=== PATIENT | female | born 1950 | race Caucasian/White ===

== ENCOUNTER 2017-08-06 02:05 | Emergency (ER) | payer OTHER ==
[~2017-08-06] VITALS: Ht 162.6 cm; Wt 55.0 kg
[2017-08-06 02:16] VITALS: BP 199/102; PULSE 79; RESP 16; TEMP 97.8; O2SAT 97
--- NOTE | 2017-08-06 02:30 | PD ---
HPI Chief Complaint: Complaint Time Seen by Provider: 02:16 Travel History International Travel<30 days: No Contact w/Intl Traveler<30days: No Traveled to known affect area: No History of Present Illness HPI The patient is a 67-year-old male that complains of frequent urination for the last 24 hours. She states she had difficulty sleeping so she called an ambulance to take her here. She denies any fever. She blames the frequent urination on the hydralazine which he takes 50 mg 3 times daily. This dose was just increased from 25 mg twice daily. She denies any nausea, vomiting or diarrhea. The patient also has had non-vertiginous dizziness. PFSH Past Medical History Diminished Hearing: No Hypertension: Yes Tetanus Vaccination: Never Vaccinated Influenza Vaccination: No ?: Not Tubal Ligation: Yes Past Surgical History Appendectomy: Yes Section: Yes Tonsillectomy: Yes Social History Alcohol Use: Yes (SEVERAL BEERS AT NIGHT) Tobacco Use: No (Quiy 07/04/2017) Substance Use: No Allergies-Medications (Allergen,Severity, Reaction): Coded Allergies: ampicillin (Verified Allergy, Unknown, 08/06/17) codeine (Verified Allergy, Unknown, 08/06/17) Reported Meds & Prescriptions Reported Meds & Active Scripts Active Reported [saima tridentata] 500 Mg PO DAILY D3-1000 (Cholecalciferol) 1,000 Unit Cap 1 Cap PO DAILY Miralax Powder (Polyethylene Glycol 3350 Powder) 17 Gm Powd 17 Gm PO DAILY Mix and dissolve one measuring cap-ful (17 grams) in water or juice. Probiotic (Saccharomyces Boulardii) 250 Mg Cap 250 Mg PO BID Fish Oil ([place]-3 Fatty Acids) 340 Mg-1,000 Mg Cap 1 Tab PO DAILY Potassium Gluconate 595 Mg (99 Mg) Tab 1 Mg PO DAILY Aspirin 81 Mg Chew 81 Mg CHEW DAILY Bhupendra (Amlodipine-Olmesartan) 5-40 Mg Tab 1 Tab PO DAILY Hydralazine (Hydralazine HCl) 100 Mg Tab 50 Mg PO TID Take with meals Metoprolol Tartrate 100 Mg Tab 100 Mg PO BID Review of Systems Except as stated in HPI: all other systems reviewed are Neg Physical Exam Narrative GENERAL: The patient is alert, oriented 3 in minimal apparent distress with her dizziness/bladder symptoms. SKIN: Focused skin assessment warm/dry. HEAD: Atraumatic. Normocephalic. EYES: Pupils equal and round. No scleral icterus. No injection or drainage. ENT: No nasal bleeding or discharge. Mucous membranes pink and moist. NECK: Trachea midline. No JVD. CARDIOVASCULAR: Regular rate and rhythm. No murmur appreciated. RESPIRATORY: No accessory muscle use. Clear to auscultation. Breath sounds equal bilaterally. GASTROINTESTINAL: Abdomen soft, non-tender, nondistended. Hepatic and splenic margins not palpable. MUSCULOSKELETAL: No obvious deformities. No clubbing. No cyanosis. No edema. NEUROLOGICAL: Awake and alert. No obvious cranial nerve deficits. Motor grossly within normal limits. Normal speech. PSYCHIATRIC: Appropriate mood and affect; insight and judgment normal. Data Data Last Documented VS Vital Signs Date Time Temp Pulse Resp B/P (MAP) Pulse Ox O2 Delivery O2 Flow Rate FiO2 08/06/17 02:21 78 16 08/06/17 02:16 97.8 199/102 (134) 97 Orders Orders Urinalysis - C+S If Indicated (08/06/17 02:14) Electrocardiogram (08/06/17 02:30) Complete Blood Count With Diff (08/06/17 02:30) Comprehensive Metabolic Panel (08/06/17 02:30) Labs Laboratory Tests Test 08/06/17 02:34 08/06/17 02:56 Urine Color YELLOW Urine Turbidity CLEAR Urine pH 7.5 Urine Specific [place] 1.006 Urine Protein NEG mg/dL Urine Glucose (UA) NEG mg/dL Urine Ketones NEG mg/dL Urine Occult Blood TRACE Urine Nitrite NEG Urine Bilirubin NEG Urine Leukocyte Esterase NEG Urine RBC 0-3 /hpf Urine Squamous Epithelial Cells 0-5 /hpf Microscopic Urinalysis Comment CULT NOT INDICATED White Blood Count 5.2 TH/MM3 Red Blood Count 4.76 MIL/MM3 Hemoglobin 15.0 GM/DL Hematocrit 46.4 % Mean Corpuscular Volume 97.3 FL Mean Corpuscular Hemoglobin 31.5 PG Mean Corpuscular Hemoglobin Concent 32.3 % Red Cell Distribution Width 12.9 % Platelet Count 313 TH/MM3 Mean Platelet Volume 7.2 FL Neutrophils (%) (Auto) 59.3 % Lymphocytes (%) (Auto) 27.5 % Monocytes (%) (Auto) 8.5 % Eosinophils (%) (Auto) 3.0 % Basophils (%) (Auto) 1.7 % Neutrophils # (Auto) 3.1 TH/MM3 Lymphocytes # (Auto) 1.4 TH/MM3 Monocytes # (Auto) 0.4 TH/MM3 Eosinophils # (Auto) 0.2 TH/MM3 Basophils # (Auto) 0.1 TH/MM3 CBC Comment DIFF FINAL Differential Comment Sodium Level 129 MEQ/L Potassium Level 3.7 MEQ/L Chloride Level 94 MEQ/L MDM Medical Decision Making Medical Screen Exam Complete: Yes Emergency Medical Condition: Yes Medical Record Reviewed: Yes Interpretation(s) The urine is clear with specific gravity 1.006 and shows trace occult blood but is otherwise normal and culture is not indicated. The CBC is normal except for hematocrit of 46.4. The EKG is normal with normal sinus rhythm rate of 77. Differential Diagnosis Urinary tract infection, electrolyte disorder, anemia, medication side effect Narrative Course The patient is convinced that this is a medication side effect, possibly due to hydralazine. She needs to go to Dr. Worthington's office today, she had planned to do this anyway and have them review her blood pressure medications. Diagnosis Primary Impression: Medication side effect Additional Instructions: As we discussed, go back to your old medication regimen until you see Dr. Worthington. As you have planned already, try to get into his office today. Disposition: 01 DISCHARGE HOME Condition: Stable Yan Carvalho MD Aug 06, 2017 02:30
[2017-08-06] MEDS ORDERED: AZOR5TAB4 PO (02:33)
[2017-08-06] MEDS ORDERED: ASPI-516 CHEW (02:33)
[2017-08-06] MEDS ORDERED: HYDR-3801 PO (02:33)
[2017-08-06] MEDS ORDERED: METO100T PO (02:33)
[2017-08-06] MEDS ORDERED: POTA595T PO (02:33)
[2017-08-06] MEDS ORDERED: [UNRECOGNIZED DRUG - OTHER] PO (02:43)
[2017-08-06] MEDS ORDERED: CHOL1CAP32 PO (02:43)
[2017-08-06] MEDS ORDERED: FISH1000 PO (02:43)
[2017-08-06] MEDS ORDERED: MIRA3350 PO (02:43)
[2017-08-06] MEDS ORDERED: SACC1CAP3 PO (02:43)
[2017-08-06 03:02] LABS: GLUCOSE,URINE NEG (NEG); KETONE, URINE NEG (NEG); NITRITE,URINE NEG (NEG); PH, URINE 7.5 (5.0-8.5)
[2017-08-06 03:07] LABS: AUTOMATED NEUTROPHIL # 3.1 TH/MM3 (1.8-7.7); BASOPHIL # 0.1 TH/MM3 (0-0.2); BASOPHIL % 1.7 % (0.0-2.0); EOSINOPHIL # 0.2 TH/MM3 (0-0.4); HEMATOCRIT 46.4 % (35.0-46.0); HEMO FLAGS DIFF FINAL; LYMPH % 27.5 % (9.0-44.0); LYMPHOCYTE # 1.4 TH/MM3 (1.0-4.8); MEAN CELL VOLUME 97.3 FL (80.0-100.0); MEAN CORPUSCULAR HEMOGLOBIN 31.5 PG (27.0-34.0); MEAN CORPUSCULAR HGB CONC 32.3 % (32.0-36.0); MONO % 8.5 % (0.0-8.0); NEUT % 59.3 % (16.0-70.0); PLATELET COUNT 313 TH/MM3 (150-450); RED BLOOD COUNT 4.76 MIL/MM3 (4.00-5.30); RED CELL DISTRIBUTION WIDTH 12.9 % (11.6-17.2); WHITE BLOOD COUNT 5.2 TH/MM3 (4.0-11.0)
[2017-08-06 03:08] LABS: BLOOD, URINE TRACE (NEG)
[2017-08-06 03:10] LABS: URINE COLOR YELLOW (YELLW/STRAW)
[2017-08-06 03:11] LABS: COMMENT (UR) CULT NOT INDICATED; CULTURE IF INDICATED CULT NOT INDICATED; RBC, URINE 0-3 /hpf (0-3); SQUAMOUS EPITHELIAL CELL URINE 0-5 /hpf (0-5)
[2017-08-06 03:15] LABS: CHLORIDE 94 MEQ/L (98-107); POTASSIUM 3.7 MEQ/L (3.5-5.1); SODIUM (NA) 129 MEQ/L (136-145)
[2017-08-06 03:19] LABS: ANION GAP 8 MEQ/L (5-15); BICARBONATE 27.4 MEQ/L (21.0-32.0); BLOOD UREA NITROGEN 11 MG/DL (7-18)
[2017-08-06 03:22] LABS: ALT (GPT) 27 U/L (10-53); AST (GOT) 26 U/L (15-37); GLOMERULAR FILTRATION RATE 79 ML/MIN (>89)
[2017-08-06 03:24] LABS: TOTAL BILIRUBIN ADULT 0.5 MG/DL (0.2-1.0)
[2017-08-06 03:25] LABS: ALKALINE PHOSPHATASE 95 U/L (45-117)
[2017-08-06 03:40] VITALS: BP 116/69; PULSE 66; RESP 16; O2SAT 98
[2017-08-06 03:50] VITALS: BP 141/80
--- NOTE | 2017-08-06 20:34 | EKG ---
Date Performed: 08/06/2017 Time Performed: 02:46:29 PTAGE: 67 years EKG: Sinus rhythm Compared to previous tracing, sinus rate is faster NORMAL ECG PREVIOUS TRACING : 01/02/2013 10.46 DOCTOR: Alejandro Pritchard Interpretating Date/Time 08/06/2017 20:33:04
== END 2017-08-06 03:52 | disposition home or self-care (01) ==
LOC: PHED 02:05
DX: R35.0 Frequency of micturition (principal); T46.5X5A Adverse effect of other antihypertensive drugs, initial encounter; I10 Essential (primary) hypertension; Z87.891 Personal history of nicotine dependence
CPT/HCPCS: 80053; 81001; 85025; 93005; 99284

== ENCOUNTER 2018-01-24 11:40 | Emergency (ER) | payer OTHER, MEDICAID ==
[2018-01-24] VITALS (15 sets, daily range): BP systolic 88–227; BP diastolic 52–118; PULSE 57–82; RESP 16–18; TEMP 98.2; O2SAT 95–98
[~2018-01-24] VITALS: Ht 164.5 cm; Wt 54.0 kg
[~2018-01-24 11:40] MED LIST: ASPI-516 CHEW; AZOR5TAB4 PO; CHOL1CAP32 PO; FISH1000 PO; HYDR-3801 PO; METO100T PO; MIRA3350 PO; POTA595T PO; SACC1CAP3 PO; [UNRECOGNIZED DRUG - OTHER] PO
--- NOTE | 2018-01-24 12:42 | PD ---
HPI Chief Complaint: Hypertension Time Seen by Provider: 12:40 Travel History International Travel<30 days: No Contact w/Intl Traveler<30days: No Traveled to known affect area: No History of Present Illness HPI Patient was just routinely checking her blood pressure when she noticed that it was systolic in the 200s, patient did not have any symptoms. Denies visual changes, headache, nausea, vomiting, chest pain, back pain, flank pain, abdominal pain. No alleviating or aggravating factors. The patient is already on metoprolol 100 mg p.o. twice daily and on hydralazine p.o. twice daily as well. Allergic to amlodipine, ampicillin, codeine Past medical history significant for hypertension appendectomy tubal ligation C- section tonsillectomy and corrective lenses PFSH Past Medical History Diminished Hearing: No Hypertension: Yes Tetanus Vaccination: > 5 Years Influenza Vaccination: No ?: Not Tubal Ligation: Yes Past Surgical History Appendectomy: Yes Section: Yes Tonsillectomy: Yes Social History Alcohol Use: Yes (SEVERAL [employer]ERS AT NIGHT) Tobacco Use: No (Quiy 07/04/2017) Substance Use: No Allergies-Medications (Allergen,Severity, Reaction): Coded Allergies: amlodipine (Verified Allergy, Unknown, unkown, 01/24/18) ampicillin (Verified Allergy, Unknown, 01/24/18) codeine (Verified Allergy, Unknown, 01/24/18) Reported Meds & Prescriptions Reported Meds & Active Scripts Active Reported [saima tridentata] 500 Mg PO DAILY D3-1000 (Cholecalciferol) 1,000 Unit Cap 1 Cap PO DAILY Miralax Powder (Polyethylene Glycol 3350 Powder) 17 Gm Powd 17 Gm PO DAILY Mix and dissolve one measuring cap-ful (17 grams) in water or juice. Fish Oil ([place]-3 Fatty Acids) 340 Mg-1,000 Mg Cap 1 Tab PO DAILY Potassium Gluconate 595 Mg (99 Mg) Tab 1 Mg PO DAILY Aspirin 81 Mg Chew 81 Mg CHEW DAILY Hydralazine (Hydralazine HCl) 100 Mg Tab 25 Mg PO TID Take with meals Metoprolol Tartrate 100 Mg Tab 100 Mg PO BID Review of Systems General / Constitutional: No: Fever Eyes: No: Visual changes HENT: No: Headaches Cardiovascular: No: Chest Pain or Discomfort Respiratory: No: Shortness of Breath Gastrointestinal: No: Abdominal Pain Genitourinary: No: Dysuria Musculoskeletal: No: Pain Skin: No Rash Neurologic: No: Weakness Psychiatric: No: Depression Endocrine: No: Polydipsia Hematologic/Lymphatic: No: Easy Bruising Physical Exam Narrative GENERAL: SKIN: Warm and dry. HEAD: Atraumatic. Normocephalic. EYES: Pupils equal and round. No scleral icterus. No injection or drainage. ENT: No nasal bleeding or discharge. Mucous membranes pink and moist. NECK: Trachea midline. No JVD. CARDIOVASCULAR: Regular rate and rhythm. RESPIRATORY: No accessory muscle use. Clear to auscultation. Breath sounds equal bilaterally. GASTROINTESTINAL: Abdomen soft, non-tender, nondistended. MUSCULOSKELETAL: Extremities without clubbing, cyanosis, or edema. No obvious deformities. NEUROLOGICAL: Awake and alert. No obvious cranial nerve deficits. Motor grossly within normal limits. Five out of 5 muscle strength in the arms and legs. Normal speech. PSYCHIATRIC: Appropriate mood and affect; insight and judgment normal. Data Data Last Documented VS Orders Orders Basic Metabolic Panel (Bmp) (01/24/18 12:42) Complete Blood Count With Diff (01/24/18 12:42) Prothrombin Time / Inr (Pt) (01/24/18 12:42) Act Partial Throm Time (Ptt) (01/24/18 12:42) Chest, Single Ap (01/24/18 12:42) Ecg Monitoring (01/24/18 12:42) Iv Access Insert/Monitor (01/24/18 12:42) Oximetry (01/24/18 12:42) Hydralazine Inj (Apresoline Inj) (01/24/18 12:45) Clonidine (Catapres) (01/24/18 13:15) Hydralazine Inj (Apresoline Inj) (01/24/18 14:00) Sodium Chlor 0.9% 250 Ml Inj (Ns 250 Ml (01/24/18 14:45) Ct Brain W/O Iv Contrast(Rout) (01/24/18 14:51) Lorazepam Inj (Ativan Inj) (01/24/18 15:00) Ckmb (Isoenzyme) Profile (01/24/18 14:52) Troponin I (01/24/18 14:52) Ed Discharge Order (01/24/18 17:38) Labs Laboratory Tests Test 01/24/18 13:00 White Blood Count 5.9 TH/MM3 Red Blood Count 4.34 MIL/MM3 Hemoglobin 13.8 GM/DL Hematocrit 41.3 % Mean Corpuscular Volume 95.0 FL Mean Corpuscular Hemoglobin 31.7 PG Mean Corpuscular Hemoglobin Concent 33.4 % Red Cell Distribution Width 12.5 % Platelet Count 284 TH/MM3 Mean Platelet Volume 7.3 FL Neutrophils (%) (Auto) 57.7 % Lymphocytes (%) (Auto) 23.7 % Monocytes (%) (Auto) 14.4 % Eosinophils (%) (Auto) 1.9 % Basophils (%) (Auto) 2.3 % Neutrophils # (Auto) 3.5 TH/MM3 Lymphocytes # (Auto) 1.4 TH/MM3 Monocytes # (Auto) 0.8 TH/MM3 Eosinophils # (Auto) 0.1 TH/MM3 Basophils # (Auto) 0.1 TH/MM3 CBC Comment DIFF FINAL Differential Comment Prothrombin Time 10.4 SEC Prothromb Time International Ratio 1.0 RATIO Activated Partial Thromboplast Time 29.9 SEC Blood Urea Nitrogen 9 MG/DL Creatinine 0.75 MG/DL Random Glucose 101 MG/DL Calcium Level 9.0 MG/DL Sodium Level 132 MEQ/L Potassium Level 3.8 MEQ/L Chloride Level 95 MEQ/L Carbon Dioxide Level 28.5 MEQ/L Anion Gap 9 MEQ/L Estimat Glomerular Filtration Rate 77 ML/MIN Total Creatine Kinase 58 U/L Troponin I LESS THAN 0.02 NG/ML MDM Medical Decision Making Medical Screen Exam Complete: Yes Emergency Medical Condition: Yes Medical Record Reviewed: Yes Differential Diagnosis Pneumothorax versus pneumonia versus pleural effusion versus STEMI Narrative Course CBC shows no leukocytosis, no anemia, normal platelet count, no left shift Coagulation profile is within normal limits Electrolytes are all within normal limits particularly kidney functions. Head CT is without any intracranial hemorrhage Chest x-ray read as no acute abnormality Diagnosis Primary Impression: Accelerated hypertension Patient Instructions: General Instructions, Hypertension (DC) Additional Instructions: Make sure to keep your appointment with ERICKA Pizarro for further evaluation and care of your blood pressure which is very difficult to control Disposition: 01 DISCHARGE HOME Condition: Stable Laurent Reyes MD January 24, 2018 12:42
[2018-01-24] MEDS ORDERED: hydrALAZINE HCL 20 MG/ML VIAL IV PUSH ONE ×2 (12:45→14:00)
[2018-01-24 13:06] LABS: AUTOMATED NEUTROPHIL # 3.5 TH/MM3 (1.8-7.7); BASOPHIL # 0.1 TH/MM3 (0-0.2); BASOPHIL % 2.3 % (0.0-2.0); EOSINOPHIL # 0.1 TH/MM3 (0-0.4); EOSINOPHIL % 1.9 % (0.0-4.0); HEMATOCRIT 41.3 % (35.0-46.0); HEMOGLOBIN 13.8 GM/DL (11.6-15.3); LYMPH % 23.7 % (9.0-44.0); LYMPHOCYTE # 1.4 TH/MM3 (1.0-4.8); MEAN CORPUSCULAR HEMOGLOBIN 31.7 PG (27.0-34.0); MEAN CORPUSCULAR HGB CONC 33.4 % (32.0-36.0); MEAN PLATELET VOLUME 7.3 FL (7.0-11.0); MONO % 14.4 % (0.0-8.0); MONOCYTE # 0.8 TH/MM3 (0-0.9); NEUT % 57.7 % (16.0-70.0); PLATELET COUNT 284 TH/MM3 (150-450); RED BLOOD COUNT 4.34 MIL/MM3 (4.00-5.30); RED CELL DISTRIBUTION WIDTH 12.5 % (11.6-17.2); WHITE BLOOD COUNT 5.9 TH/MM3 (4.0-11.0)
[2018-01-24] MEDS ORDERED: cloNIDine HCL 0.2 MG TAB PO ONE (13:15)
[2018-01-24 13:18] LABS: BICARBONATE 28.5 MEQ/L (21.0-32.0)
[2018-01-24 13:19] LABS: PROTHROMBIN TIME - PATIENT 10.4 SEC (9.8-11.6)
[2018-01-24 13:21] LABS: CREATININE 0.75 MG/DL (0.50-1.00)
--- NOTE | 2018-01-24 13:37 | RADRPT ---
EXAM DATE: 01/24/2018 1:33 PM EDT AGE/SEX: 67 years / Female INDICATIONS: High blood pressure. CLINICAL DATA: This is the patient's initial encounter. Patient reports that signs and symptoms have been present for 1 day and indicates a pain score of 0/10. MEDICAL/SURGICAL HISTORY: Hypertension. Appendectomy. section. Tubal ligation. COMPARISON: No prior [place] exams available for comparison. FINDINGS: A single AP view of the chest demonstrates the lungs to be symmetrically aerated without evidence of mass, infiltrate or effusion. The cardiomediastinal contours are unremarkable. Osseous structures a re intact. Atherosclerotic calcifications are present in the aorta. There are multiple overlying car diac leads. There is mild scarring in the left lung base. CONCLUSION: No acute cardiopulmonary disease. Electronically signed by: Frank Riojas MD 01/24/2018 1:35 PM EDT
[2018-01-24] MEDS ORDERED: SODIUM CHLOR 0.9% 250 ML INJ 250 ML IV ONE (14:45)
[2018-01-24] MEDS ORDERED: LORazepam 2 MG/ML VIAL IV PUSH ONE (15:00)
[2018-01-24 15:15] LABS: TROPONIN I LESS THAN 0.02 NG/ML (0.02-0.05)
--- NOTE | 2018-01-24 15:24 | RADRPT ---
EXAM DATE: 01/24/2018 3:19 PM EDT AGE/SEX: 67 years / Female INDICATIONS: Lightheaded. Altered mental status. CLINICAL DATA: This is the patient's initial encounter. Patient reports that signs and symptoms have been present for 1 day and indicates a pain score of 0/10. MEDICAL/SURGICAL HISTORY: Cerebrovascular disease. Hypertension. Appendectomy. Tubal ligation. C esarean section. RADIATION DOSE: 55.58 CTDI (mGy) COMPARISON: No prior [facility] exams available for comparison. TECHNIQUE: CT of the head without contrast. Using automated exposure control and adjustment of the mA and/or kV according to patient size, radiation dose was kept as low as reasonably achievable to ob tain optimal diagnostic quality images. FINDINGS: Cerebrum: The ventricles are normal for age. No evidence of midline shift, mass lesion, hemorrhage or acute infarction. No extraaxial fluid collections are seen. Posterior Fossa: The cerebellum and brainstem are intact. The 4th ventricle is midline. The cerebe llopontine angle is unremarkable. Extracranial: The visualized portion of the orbits is intact. Skull: The calvaria is intact. No evidence of skull fracture. CONCLUSION: 1. No acute intracranial abnormality is identified. Electronically signed by: Shahab Silva MD 01/24/2018 3:23 PM EDT
--- NOTE | 2018-01-24 16:27 | PD ---
Data Data Last Documented VS Vital Signs Date Time Temp Pulse Resp B/P (MAP) Pulse Ox O2 Delivery O2 Flow Rate FiO2 01/24/18 18:14 78 16 131/82 (98) 96 01/24/18 17:30 Room Air 01/24/18 11:52 98.2 Orders Orders Basic Metabolic Panel (Bmp) (01/24/18 12:42) Complete Blood Count With Diff (01/24/18 12:42) Prothrombin Time / Inr (Pt) (01/24/18 12:42) Act Partial Throm Time (Ptt) (01/24/18 12:42) Chest, Single Ap (01/24/18 12:42) Ecg Monitoring (01/24/18 12:42) Iv Access Insert/Monitor (01/24/18 12:42) Oximetry (01/24/18 12:42) Hydralazine Inj (Apresoline Inj) (01/24/18 12:45) Clonidine (Catapres) (01/24/18 13:15) Hydralazine Inj (Apresoline Inj) (01/24/18 14:00) Sodium Chlor 0.9% 250 Ml Inj (Ns 250 Ml (01/24/18 14:45) Ct Brain W/O Iv Contrast(Rout) (01/24/18 14:51) Lorazepam Inj (Ativan Inj) (01/24/18 15:00) Ckmb (Isoenzyme) Profile (01/24/18 14:52) Troponin I (01/24/18 14:52) Ed Discharge Order (01/24/18 17:38) Labs Laboratory Tests Test 01/24/18 13:00 White Blood Count 5.9 TH/MM3 Red Blood Count 4.34 MIL/MM3 Hemoglobin 13.8 GM/DL Hematocrit 41.3 % Mean Corpuscular Volume 95.0 FL Mean Corpuscular Hemoglobin 31.7 PG Mean Corpuscular Hemoglobin Concent 33.4 % Red Cell Distribution Width 12.5 % Platelet Count 284 TH/MM3 Mean Platelet Volume 7.3 FL Neutrophils (%) (Auto) 57.7 % Lymphocytes (%) (Auto) 23.7 % Monocytes (%) (Auto) 14.4 % Eosinophils (%) (Auto) 1.9 % Basophils (%) (Auto) 2.3 % Neutrophils # (Auto) 3.5 TH/MM3 Lymphocytes # (Auto) 1.4 TH/MM3 Monocytes # (Auto) 0.8 TH/MM3 Eosinophils # (Auto) 0.1 TH/MM3 Basophils # (Auto) 0.1 TH/MM3 CBC Comment DIFF FINAL Differential Comment Prothrombin Time 10.4 SEC Prothromb Time International Ratio 1.0 RATIO Activated Partial Thromboplast Time 29.9 SEC Blood Urea Nitrogen 9 MG/DL Creatinine 0.75 MG/DL Random Glucose 101 MG/DL Calcium Level 9.0 MG/DL Sodium Level 132 MEQ/L Potassium Level 3.8 MEQ/L Chloride Level 95 MEQ/L Carbon Dioxide Level 28.5 MEQ/L Anion Gap 9 MEQ/L Estimat Glomerular Filtration Rate 77 ML/MIN Total Creatine Kinase 58 U/L Troponin I LESS THAN 0.02 NG/ML MDM Supervised Visit with CALEB: No Narrative Course Patient CARE assume from Dr. Reyes at 1500, this is a 67-year-old female presented emergency department for asymptomatic elevated blood pressure, during the course of her treatment she began complaining of chest pain, she is received a total of 30 mg of hydralazine a dose of clonidine as well as 0.5 mg of Ativan. Nursing reports to me that the patient initially was normotensive and then became, somewhat aggravated at the wait time and was hypertensive only on the room. Dr. Reyes is asked me to follow the patient's troponin and consider the patient for admission for hypertensive urgency with chest pain. On my evaluation the patient she is fairly somnolent from the Ativan able to answer my questions. She adamantly denies ever having any chest pain to me. She states she feels well and only had some right arm numbness from the IV which has resolved. I discussed with her that Dr. Reyes had considered her for admission and she would be amenable to staying overnight. Patient discussed with Dr. Carcamo blood pressure is under control the patient denies any chest pain. Discussed with Dr. Reyes and consider this patient for admission Dr. abreu is unsure as to whether the patient would gain anything from admission, I tend to agree that the patient likely is not going to benefit from admission at all given her blood pressures under control and she has no signs of endorgan failure. He is seen and examined the patient as well home to follow-up as an outpatient with her primary care physician for further management of her blood pressure. This was discussed with the patient and she is agreeable Diagnosis Primary Impression: Accelerated hypertension Patient Instructions: General Instructions, Hypertension (DC) Additional Instruction: Make sure to keep your appointment with ERICKA Pizarro for further evaluation and care of your blood pressure which is very difficult to control Disposition: 01 DISCHARGE HOME Condition: Stable David Gloria MD January 24, 2018 16:27
== END 2018-01-24 18:15 | disposition home or self-care (01) ==
LOC: PHEFT 11:40
DX: I10 Essential (primary) hypertension (principal); Z87.891 Personal history of nicotine dependence; Z79.82 Long term (current) use of aspirin; Z79.899 Other long term (current) drug therapy
CPT/HCPCS: 70450; 71045; 80048; 82550; 84484; 85025; 85610; 85730; 96361; 96374; 96375; 96376; 99285; J0360; J2060; J7050